=== PATIENT | female | born 1985 | race Caucasian/White ===

== ENCOUNTER 2018-08-14 10:21 | Outpatient (CLI) | payer OTHER | END 2018-08-14 10:42 | disposition home or self-care (01) | LOC: LAB 10:21 | DX: Z34.03 Encounter for supervision of normal first pregnancy, third trimester (principal) ==

== ENCOUNTER → 2018-09-22 09:08 | Outpatient (CLI) | payer OTHER | END | disposition home or self-care (01) | LOC: LAB 09:08 | DX: E03.8 Other specified hypothyroidism (principal); Z34.03 Encounter for supervision of normal first pregnancy, third trimester ==

== ENCOUNTER 2018-10-06 16:44 | Inpatient (IN) | payer OTHER ==
[~2018-10-06] VITALS: Ht 167.6 cm; Wt 66.7 kg
[~2018-10-06 16:44] MED LIST: LEVOXYL175 MCG
[2018-10-06] MEDS ORDERED: PRENATAL TABLE1 EAC4 PO (17:40)
== END 2018-10-09 17:42 | disposition home or self-care (01) | DRG 807 ==
LOC: LDR 16:44 → OB/GYN 16:44
PROVIDERS: ADMIT Obstetrics & Gynecology
PROC: 3E0P7VZ Introduction of Hormone into Female Reproductive, Via Natural or Artificial Opening (ICD-10-PCS; 2018-10-06)
PROC: 4A1HXCZ Monitoring of Products of Conception, Cardiac Rate, External Approach (ICD-10-PCS; 2018-10-06)
PROC: 10E0XZZ Delivery of Products of Conception, External Approach (ICD-10-PCS; principal; 2018-10-07)
PROC: 10907ZC Drainage of Amniotic Fluid, Therapeutic from Products of Conception, Via Natural or Artificial Opening (ICD-10-PCS; 2018-10-07)
PROC: 3E033VJ Introduction of Other Hormone into Peripheral Vein, Percutaneous Approach (ICD-10-PCS; 2018-10-07)
DX: O80 Encounter for full-term uncomplicated delivery (principal); Z37.0 Single live birth; Z3A.38 38 weeks gestation of pregnancy

== ENCOUNTER 2018-11-04 18:02 | Outpatient (CLI) | payer OTHER ==
[~2018-11-04 18:02] MED LIST changes: +PRENATAL TABLE1 EAC4 PO
== END 2018-11-04 18:10 | disposition home or self-care (01) ==
LOC: LAB 18:02
DX: E03.8 Other specified hypothyroidism (principal)